=== PATIENT | female | born 1940 | race Caucasian/White ===

== ENCOUNTER 2018-04-02 07:15 | Inpatient (IN) ==
[~2018-04-02 07:15] MED LIST: LIDOCAINE W/ SODIUM BICARB 0.5 ML SYR SUBD ONE; Nasal Sanitizer POPSWAB ampule 3 AMP (Nozin) PREOP DOSE ENOS SCH; ceFAZolin Inj 2gm (Premix) 2 GM/50 ML BAG IV ONE
[2018-04-02] MEDS ORDERED: Ketorolac Inj 30 MG, Morphine Inj (Ortho Cocktail) 5 MG, BUPivacaine Inj 0.25% PF 150 MG SPLASH ONE ×3 (07:20)
[2018-04-02] MEDS ORDERED: Lactated Ringers 1,000 ML PRIMARY IV ONE ×3 (07:42→13:03)
[2018-04-02] MEDS ORDERED: ceFAZolin Inj 2gm (Premix) 2 GM/50 ML BAG IV ONE (07:42)
[2018-04-02] MEDS ORDERED: LIDOCAINE W/ SODIUM BICARB 0.5 ML SYR ONE (07:42)
[2018-04-02] MEDS ORDERED: LIDOCAINE HCL 2 % 10 ML JELLY URO-JECT TOPICAL PRN (07:47)
[2018-04-02] MEDS ORDERED: MIDAZOLAM HCL 2 MG/2 ML VIAL ONE ×2 (08:28→10:30)
[2018-04-02] MEDS: Lactated Ringers 1,000 ML PRIMARY IV SCH ×3 (08:30→16:39)
[2018-04-02] MEDS ORDERED: MIDAZOLAM HCL 2 MG/2 ML VIAL IVP ONE (08:45)
[2018-04-02 08:49] LABS: BILIRUBIN,URINE NEGATIVE (NEG); CLARITY,URINE SLIGHTLY CLOUDY (CLEAR); COLOR,URINE YELLOW (Y); GLUCOSE, URINE (UA) NEGATIVE (NEG); OCCULT BLOOD,URINE NEGATIVE (NEG); PROTEIN,URINE NEGATIVE (NEG); URINE SAMPLE TYPE CATH SPECIMEN; UROBILINOGEN,URINE 0.2 EU/dL (0.2)
[2018-04-02 08:52] LABS: RBC,URINE 0-1 /hpf; URINE CRYSTALS MODERATE; WBC,URINE 0
[2018-04-02] MEDS ORDERED: MORPHINE SULFATE/PF 10 MG/10 ML AMPULE ONE (10:30)
[2018-04-02] MEDS ORDERED: fentaNYL Inj 100 MCG/2 ML VIAL ONE (10:30)
[2018-04-02] MEDS ORDERED: BACITRACIN 50,000 UNIT VIAL IRRIG ONE (10:39)
[2018-04-02] MEDS ORDERED: BUPivacaine Liposome/PF (Exparel) Inj 20ml vial INFIL ONE (10:39)
[2018-04-02] MEDS ORDERED: Sodium Chloride 0.9% vial 40 ML ONE (10:39)
[2018-04-02] MEDS ORDERED: PROPOFOL 10 MG/1 ML (200 MG/20 ML) VIAL IV ONE (11:16)
[2018-04-02] MEDS ORDERED: TRANEXAMIC ACID 1,000 MG / 10 ML VIAL ONE ×2 (11:47→11:50)
[2018-04-02] MEDS ORDERED: ePHEDrine Inj 50 MG/ML AMP ONE (12:28)
--- NOTE | 2018-04-02 13:53 | ORTHO.OP ---
Surgery Date: 04/02/18 Preoperative Diagnosis: Right hip OA Postoperative Diagnosis: Same Procedure: Right MARINA Surgeon: Amish Edmonds MD Ob/Gyn Physician: Marcelina Blackwell PA-C Anesthesia Provider: Dylon Way CRNA Anesthesia Type: Regional (Spinal) Estimated Blood Loss (mL): 300 Fluids: 2000mL Pathology: None Complications: None
[2018-04-02 14:26] LABS: Hemoglobin [HGB] 12.3 g/dL (12.0-16.0)
--- NOTE | 2018-04-02 14:36 | DI ---
AP PELVIS AND RIGHT HIP, 04/02/2018 10:38 AM: Clinical History: Status post right total hip replacement. Osteoarthritis. Previous Exam: None at this facility. Comparison is made with an outside study from [place], [place], dated 03/18/2018. Views: AP pelvis with AP and lateral views of replaced hip. Patient is status post right total hip replacement. Prosthetic joint articulates normally. Reading: Right total hip replacement. Prosthetic joint articulates normally.
[2018-04-02] MEDS ORDERED: MAG HYDROX/AL HYDROX/SIMETH 30 ML SUSP PO PRN (14:38)
[2018-04-02] MEDS ORDERED: Prochlorperazine Tab 10 MG TAB PO PRN (14:38)
[2018-04-02] MEDS ORDERED: MORPHINE SULFATE 2 MG/1 ML IVP PRN (14:38)
[2018-04-02] MEDS ORDERED: HYDROcodone-APAP 7.5 MG-325 MG TABLET PO PRN (14:38)
[2018-04-02] MEDS ORDERED: ONDANSETRON 4 MG/2 ML VIAL IVP PRN (14:38)
[2018-04-02] MEDS ORDERED: diphenhydrAMINE 25 MG CAPSULE PO PRN (14:38)
[2018-04-02] MEDS ORDERED: BISACODYL 10 MG SUPPOSITORY RECTAL PRN (14:38)
[2018-04-02] MEDS ORDERED: ACETAMINOPHEN 325 MG TABLET PO PRN (14:38)
[2018-04-02] MEDS ORDERED: CALCIUM CARBONATE 500 MG (TUMS) CHEWABLE TABLET PO PRN (14:38)
[2018-04-02] MEDS ORDERED: BISACODYL 5 MG TABLET PO PRN (14:38)
[2018-04-02] MEDS ORDERED: Ondansetron ODT Tab 8 MG TAB PO PRN (14:38)
[2018-04-02] MEDS ORDERED: MORPHINE SULFATE 10 MG/1 ML IV PRN (15:45)
[2018-04-02] MEDS ORDERED: MORPHINE SULFATE 2 MG/1 ML IV PRN (15:45)
[2018-04-02] MEDS ORDERED: MORPHINE SULFATE 4 MG/1 ML IV PRN (15:45)
--- NOTE | 2018-04-02 17:09 | CONSULT ---
Consult Note - Consult Reason for Consult: PostOp Consulation : Ortho Requesting Physician: Dr. Edmonds Primary Care Provider: DEMETRI DARLING - History of Present Illness History of Present Illness: Is a very nice 78-year-old female admitted for elective right hip total replacement for end-stage osteoarthritis hospitalist service consulted for medical management. She is doing quite well postop but no chest pain nausea or vomiting Past Medical History Medical History: Hypertension, hypercholesterolemia, osteoporosis, thyroid disease, Surgical History: Bilateral cataract surgery, gallbladder surgery laparoscopic, partial hysterectomy noncancerous, left total hip replacement Tobacco Use: Never Smoker In the Past 12 Months, Have Used or Abuse Any of the Following Substance: None Review of Systems - Review of Systems All Systems: Reviewed & No Additional Complaints Except as Stated - Respiratory Respiratory: DENIES: Negative System Review, Cough, Sputum, Dyspnea At Rest, Dyspnea with Exertion, Pleuritic Pain, Hemoptysis, Wheezing, Other, See HPI - Cardiovascular Cardiovascular: DENIES: Negative System Review, Chest Pain, Edema, Syncope, Palpitations, Orthopnea, Paroxysmal Nocturnal Dyspnea, Other, See HPI - Gastrointestinal Gastrointestinal / Abdominal: DENIES: Negative System Review, Nausea, Vomiting, Diarrhea, Constipation, Abdominal Pain, Bloody Stool, Poor Appetite, Heartburn, Regurgitation, Bloating, Lactose Intolerance, Melena, Bright Red Blood per Rectum, Other, See HPI Medication / Allergies Home Medications: Home Medications Medication Instructions Recorded Confirmed Type Aspirin [Aspir 81] 81 mg PO DAILY 08/28/11 04/01/18 History Calcium Carbonate [Calcium] 500 mg PO DAILY 08/28/11 04/01/18 History Levothyroxine Sodium [Synthroid] 25 mcg PO DAILY 08/28/11 04/02/18 History Lovastatin 20 mg PO DAILY 08/28/11 04/01/18 History Multivitamins W-Minerals 1 each PO DAILY 08/28/11 04/01/18 History [Multivitamin] Omeprazole 20 mg PO DAILY 08/28/11 04/01/18 History Amlodipine Besylate/Benazepril 10 - 40 mg PO DAILY cap 06/01/14 04/01/18 History [LOTREL] Celecoxib [Celebrex] 200 mg PO DAILY cap 06/01/14 04/01/18 History Cetirizine HCl [Zyrtec] 10 mg PO DAILY tab 06/01/14 04/01/18 History Cyclobenzaprine HCl 10 mg PO BID tab 06/01/14 04/01/18 History Ibandronate Sodium [Boniva] 150 mg PO MONTHLY tab 06/01/14 04/01/18 History Estrogens, Conj Vaginal Cream 30 gm VAGINAL WEEKLY 06/09/14 04/01/18 History [Premarin Vaginal Cream] Hydrocodone/Acetaminophen [[place] 1 - 2 ea PO Q4-6H PRN #70 tab 04/02/18 Rx 7.5-325 Tablet] Allergies/Adverse Reactions: Allergies Allergy/AdvReac Type Severity Reaction Status Date / Time Sulfa (Sulfonamide Allergy Intermediate RASH Verified 04/02/18 14:47 Antibiotics) [Sulfa(Sulfonamide Antibiotics)] adhesive AdvReac RASH Verified 04/02/18 14:47 Exam - Vitals Vital Signs: Vital Signs Temperature 97 F Temperature Source Temporal Artery Scan Pulse Rate [Pulse Oximeter] 72 Pulse Rate 58 Respiratory Rate 16 Blood Pressure [Right Arm] 118/65 Blood Pressure 125/66 Pulse Ox 100 Oxygen Flow Rate 1 Oxygen Delivery Method Nasal Cannula Height 5 ft Weight 130 lb - General General Appearance: No Acute Distress, Cooperative - Respiratory Respiratory Exam: POSITIVE: Clear to Auscultation - Bilaterally, Breathing Non Labored, Normal To Percussion, Normal to Percussion and Palpation - Cardiovascular Cardiovascular Exam: POSITIVE: RRR, No Murmur, No Clicks, No Gallops, No Rubs, PMI Non-Displaced - GI/Abdominal GI/Abdominal Exam: POSITIVE: Normal Bowel Sounds, Non Tender, Non Distended, Soft, No Masses, No Hepatomegaly, No Splenomegaly, No Organomegaly Results - Labs CBC and BMP: 04/02/18 14:24 Assessment and Plan - Patient Problems (1) Status post total hip replacement, right Current Visit: Yes Status: Acute Comment: Deferred Dr. Edmonds for postop pain anticoagulation PT OT orders Code(s): Z96.641 - Presence of right artificial hip joint (2) Hypertension Current Visit: Yes Status: Acute Comment: Continue current medications Code(s): I10 - Essential (primary) hypertension (3) Hypercholesterolemia Current Visit: Yes Status: Acute Comment: Continue current meds Code(s): E78.00 - Pure hypercholesterolemia, unspecified (4) Hypothyroidism Current Visit: Yes Status: Acute Comment: Continue current meds Code(s): E03.9 - Hypothyroidism, unspecified
[2018-04-02] MEDS: PANTOPRAZOLE 40 MG TABLET PO SCH (17:32)
--- NOTE | 2018-04-02 17:50 | CRNA.PROCE ---
Central Neuraxis Block Placemt - - Safety Measures: Time Out Taken, Site Verified - - Type of Block: Subarachnoid Reason for Block: Surgical Moniters Used During Block: EKG, SPO2, NIBP Sedation Used - Enter Amount Used in Comment Field: Midazolam (mg): Yes (1), Fentanyl (mcg): Yes (50) Positioning: Sitting Skin Prep Used: ChloroPrep Draped: Yes Skin Infiltration - Enter Amount Used in Comment Field: 1% Xylocaine (mL): Yes Introducer User: 23 Gauge Spinal Needle Used: 25 Thuy 80 mm Local Anesthetic - Enter Amount Used in Comment Field: 0.75 % Bupivacaine with Dextrose (ml): Yes (2) Additive Used - Enter Amount Used in Comment Field: Preservative Free Morphine (mg): Yes (0.15) Bioclusive Dressing Applied: No Anesthesia Time - Other Weight: 58.967 kg Height: 5 ft Body Mass Index (BMI): 25.4
--- NOTE | 2018-04-02 17:51 | CRNA.PROGR ---
Anesthesia Time - Procedure/Recovery Time Start Date: 04/02/18 End Date: 04/02/18 Anesthesia : Time In: 11:01 Anesthesia : Time Out: 13:45 Anesthesia : Total Time: 164 - Block Time Start Date: 04/02/18 End Date: 04/02/18 PreOp Block : Time In: 10:35 PreOp Block : Time Out: 10:45 PreOp Block : Total Time: 10 - Total Anesthesia Time Total Anesthesia Time (minutes): 174 - Other Weight: 58.967 kg Height: 5 ft Body Mass Index (BMI): 25.4 Physical Status: P3 Anesthesia Type: Spinal Block
--- NOTE | 2018-04-02 17:51 | CRNA.PROGR ---
Anesthesia Recovery Phase I - Post Anesthesia Evaluation Patient's Condition on Arrival in Phase I: Stable Pain Level: 0
--- NOTE | 2018-04-02 19:44 | ORTHO.PROG ---
Last Taken Vital Signs: Vital Signs - Last Taken Temperature 97.4 F 04/02/18 17:00 Pulse Rate 89 04/02/18 17:00 Respiratory Rate 16 04/02/18 17:00 Blood Pressure 102/58 04/02/18 17:00 Pulse Ox 99 04/02/18 17:00 Subjective: Bianca was moved up to the floor this afternoon and denies any hip pain. She complains of some pain on the inside of her thigh that just started within the last hour or so. She was able to eat half of her dinner and has no other complaints. Objective: Pt is A&Ox3, and in no distress, sitting upright in her bed with abduction pillow on per protocol. She has no tenderness at her hip, but is mildly tender on palpation at the proximal-mid adductor muscle region. No erythema, induration, or skin wound is present. Dressing is intact. Skin is clean and dry. No calf tenderness, and sensation is intact to light touch. Assessment: POD 0 s/p R MARINA, doing well Plan: Bianca will be followed by the hospitalist, and will be seen by ORLANDO Riley, in the morning. MARINA protocol will be followed, and she will take pain medication as needed. Her hope is to get discharged home by tomorrow afternoon or evening, where her family will be there to take care of her. She can be discharged s/p routine consult with PT
[2018-04-02] MEDS: ceFAZolin Inj 2gm (Premix) 2 GM/50 ML BAG IV SCH (19:57)
[2018-04-02] MEDS ORDERED: BENAZEPRIL HCL 20 MG TABLET PO SCH ×2 (21:00)
[2018-04-02] MEDS: DOCUSATE 100 MG CAPSULE PO SCH (21:08)
[2018-04-02] MEDS: IBUPROFEN 400 MG TABLET PO PRN (23:03)
[2018-04-03] MEDS: Lactated Ringers 1,000 ML PRIMARY IV SCH (02:39)
[2018-04-03] MEDS: ceFAZolin Inj 2gm (Premix) 2 GM/50 ML BAG IV SCH (02:39)
[2018-04-03 05:21] VITALS: RESP 16
[2018-04-03 05:25] LABS: Hematocrit [HCT] 33.1 % (37.0-47.0); Hemoglobin [HGB] 10.6 g/dL (12.0-16.0); MEAN CORPUSCULAR HEMOGLOBIN 27.3 PG (27-31); MEAN CORPUSCULAR VOLUME 85.3 FL (81-99); MEAN PLATELET VOLUME 10.2 FL (7.4-12.2); RED BLOOD COUNT 3.88 10^6/uL (4.20-5.40)
[2018-04-03] MEDS ORDERED: LEVOTHYROXINE 25 MCG TABLET PO SCH (05:30)
[2018-04-03 05:33] LABS: BLOOD UREA NITROGEN 15 mg/dL (7-22); BUN/CREATININE RATIO 21.42 (6-20)
[2018-04-03] MEDS: PANTOPRAZOLE 40 MG TABLET PO SCH (06:48)
[2018-04-03 07:51] VITALS: BP 113/69; TEMP 97.7; O2SAT 98
[2018-04-03] MEDS: IBUPROFEN 400 MG TABLET PO PRN (08:13)
[2018-04-03] MEDS: DOCUSATE 100 MG CAPSULE PO SCH (08:13)
[2018-04-03] MEDS ORDERED: ENOXAPARIN SODIUM 30 MG/0.3 ML SYRINGE SUBCUT SCH (09:00)
[2018-04-03] MEDS ORDERED: POTASSIUM CHLORIDE 20 MEQ TAB PO SCH (09:00)
[2018-04-03] MEDS ORDERED: CELECOXIB 200 MG CAPSULE PO SCH (09:00)
--- NOTE | 2018-04-03 09:43 | DCSUMMARY ---
Hospitalization Summary Hospital Course: Final Discharge Diagnosis: Current Visit Problems Problem Status Onset Code Status post total hip replacement, right Acute Z96.641 Hypertension Acute I10 Hypercholesterolemia Acute E78.00 Hypothyroidism Acute E03.9 Diagnostic Data, Laboratory Data, and Procedures of Signifigance: History and Physical pertinent to Admission: Course of Hospitalization: Is a very nice 78-year-old female status post right hip replacement by Dr. Edmonds. See his operative note progress notes for details follow-up appointments and pain medication and anticoagulation instructions. Patient does have a when necessary Percocet and 81 mg of aspirin for 6 weeks ordered. She had hypokalemia which was replaced before she left other medical issues remained stable no change in home medications. She will follow up as instructed by Dr. Edmonds's team On the date of discharge, the patient was examined: Gen.: No acute distress, alert, nontoxic Heart: Regular rate and rhythm, no murmurs, clicks, gallops, or rubs Lungs: Clear to auscultation bilaterally, breathing is nonlabored Abdomen/GI: Normal tones on auscultation, soft, nontender, nondistended Musculoskeletal/extremities: No clubbing, cyanosis, or edema Vitals reviewed and are listed below Vital Signs (24 hrs) 04/02/18 13:45 04/02/18 13:50 04/02/18 13:55 Temperature 96.6 F L Pulse Rate 63 67 56 L Pulse Rate [Pulse Oximeter] Respiratory Rate 12 12 12 Blood Pressure 105/75 118/67 119/68 Blood Pressure [Right Arm] Pulse Ox 94 100 100 04/02/18 14:00 04/02/18 14:10 04/02/18 14:20 Temperature Pulse Rate 57 L 67 56 L Pulse Rate [Pulse Oximeter] Respiratory Rate 12 16 16 Blood Pressure 123/67 108/55 124/66 Blood Pressure [Right Arm] Pulse Ox 100 100 100 04/02/18 14:30 04/02/18 14:41 04/02/18 15:21 Temperature 97.5 F 96.8 F Pulse Rate 58 L Pulse Rate [Pulse Oximeter] 68 Respiratory Rate 16 16 12 Blood Pressure 125/66 Blood Pressure [Right Arm] 125/73 Pulse Ox 100 100 04/02/18 15:35 04/02/18 17:00 04/02/18 21:00 Temperature 97 F 97.4 F 98.1 F Pulse Rate Pulse Rate [Pulse Oximeter] 72 89 Respiratory Rate 16 16 20 Blood Pressure Blood Pressure [Right Arm] 118/65 102/58 114/67 Pulse Ox 100 99 95 04/03/18 00:20 04/03/18 05:00 04/03/18 07:50 Temperature 97.8 F 97.6 F 97.7 F Pulse Rate Pulse Rate [Pulse Oximeter] 85 83 Respiratory Rate 20 16 16 Blood Pressure Blood Pressure [Right Arm] 120/66 110/59 113/69 Pulse Ox 96 94 98 Assessment and Plan: 1. As per discharge assessments above 2. Disposition: Home 3. Condition on discharge, stable and improved. 4. Diet: regular diet 5. Activities: resume normal activities 6. Follow-Up: 1. PCP 2. 7. Medications at the Time of Discharge: Home Medications Medication Instructions Recorded Confirmed Type Aspirin [Aspir 81] 81 mg PO DAILY 08/28/11 04/01/18 History Calcium Carbonate [Calcium] 500 mg PO DAILY 08/28/11 04/01/18 History Levothyroxine Sodium [Synthroid] 25 mcg PO DAILY 08/28/11 04/02/18 History Lovastatin 20 mg PO DAILY 08/28/11 04/01/18 History Multivitamins W-Minerals 1 each PO DAILY 08/28/11 04/01/18 History [Multivitamin] Omeprazole 20 mg PO DAILY 08/28/11 04/01/18 History Amlodipine Besylate/Benazepril 10 - 40 mg PO DAILY cap 06/01/14 04/01/18 History [LOTREL] Celecoxib [Celebrex] 200 mg PO DAILY cap 06/01/14 04/01/18 History Cetirizine HCl [Zyrtec] 10 mg PO DAILY tab 06/01/14 04/01/18 History Cyclobenzaprine HCl 10 mg PO BID tab 06/01/14 04/01/18 History Ibandronate Sodium [Boniva] 150 mg PO MONTHLY tab 06/01/14 04/01/18 History Estrogens, Conj Vaginal Cream 30 gm VAGINAL WEEKLY 06/09/14 04/01/18 History [Premarin Vaginal Cream] Hydrocodone/Acetaminophen [[place] 1 - 2 ea PO Q4-6H PRN #70 tab 04/02/18 Rx 7.5-325 Tablet] 8. Time, care, counseling and coordination of care for this discharge is greater than 30 minutes. Exam - Vitals Vital Signs: Vital Signs Temperature 97.7 F Temperature Source Temporal Artery Scan Pulse Rate [Pulse Oximeter] 83 Pulse Rate 58 Respiratory Rate 16 Blood Pressure [Right Arm] 113/69 Blood Pressure 125/66 Pulse Ox 98 Oxygen Flow Rate 1 Oxygen Delivery Method Room Air Height 5 ft Weight 130 lb Patient Problems - Patient Problem List (1) Status post total hip replacement, right Current Visit: Yes Status: Acute Code(s): Z96.641 - Presence of right artificial hip joint Category: Surgical (2) Hypertension Current Visit: Yes Status: Acute Code(s): I10 - Essential (primary) hypertension Category: Medical (3) Hypercholesterolemia Current Visit: Yes Status: Acute Code(s): E78.00 - Pure hypercholesterolemia, unspecified Category: Medical (4) Hypothyroidism Current Visit: Yes Status: Acute Code(s): E03.9 - Hypothyroidism, unspecified Category: Medical
--- NOTE | 2018-04-03 12:15 | PT.PROG ---
Progress Note Progress Note: S. Patient stated that she has a lot of stairs at home. O. Patient ambulated 50 feet to the stair well then ascended and descended 12 stairs then ambulated 50 feet back to her room where she was left in bed with alarm and call light. A. Patient tolerated therapy well, she struggled with stair training however her family agreed to assist her. P. Patient has met all goals at this time.
--- NOTE | 2018-04-03 13:29 | ORTHO.PROG ---
Last Taken Vital Signs: Vital Signs - Last Taken Temperature 97.7 F 04/03/18 07:50 Pulse Rate 83 04/03/18 07:50 Respiratory Rate 16 04/03/18 07:50 Blood Pressure 113/69 04/03/18 07:50 Pulse Ox 98 04/03/18 07:50 Subjective: Patient reports some pain while ambulating, but states is it controlled on IBU only. She is not wanting to take any narcotic pain meds. Denies any CP, SOB, F/C, or calf pain. She would like to go home today. She states she has help at home. Objective: Laboratory Results 04/02/18 04/03/18 04/03/18 14:24 04:50 04:50 WBC 7.10 RBC 3.88 L Hgb 12.3 10.6 L Hct 38.0 33.1 L MCV 85.3 MCH 27.3 MCHC 32.0 L RDW Std Deviation 45.1 RDW Coeff of Jessika 14.8 H Plt Count 264 MPV 10.2 Sodium 136 Potassium 3.6 L Chloride 104 Carbon Dioxide 26 Anion Gap 6 BUN 15 Creatinine 0.7 BUN/Creatinine Ratio 21.42 H Glucose 97 Calculated Osmolality 282.0 Calcium 8.4 L Troponin I 04/03/18 04:50 WBC RBC Hgb Hct MCV MCH MCHC RDW Std Deviation RDW Coeff of Jessika Plt Count MPV Sodium Potassium Chloride Carbon Dioxide Anion Gap BUN Creatinine BUN/Creatinine Ratio Glucose Calculated Osmolality Calcium Troponin I < 0.012 On exam, the patient is A&O x 3 and is not in any acute distress. The dressing is clean/dry/intact. Negative calf tenderness. NV intact. Assessment: POD 1 from routine Right MARINA overall doing well. Plan: * DVT ppx: ASA 81mg 1 tablet daily x 6 weeks and discharge home with portable SCDs * Pain meds: discharge home with hydrocodone and OTC IBU 200mg 4 tablets every 8 hours prn pain * PT: start outpatient PT on Friday * WBAT with walker * posterior hip restrictions * wound care: may remove dressing on POD 3 and shower as normal; no soaking of the incision * discharge home once cleared by PT and hospitalist * follow-up with orthopedics in 2 weeks as scheduled
--- NOTE | 2018-04-03 14:49 | PTI REPORT ---
Thank you for the referral of Bianca Hebert. She was seen on 04/02/18 for an inpatient evaluation status post right total hip replacement with a posterior approach. SUBJECTIVE: The patient is an 78-year-old female who underwent a right total hip replacement with a posterior approach earlier today. The patient reports that she is not having any pain, numbness, or tingling into her right lower extremity at this time. The patient is very anxious to get up and moving as she states that she really wants to go home as soon as she is able to. The patient lives in [place], [place] with her . 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 The patient states that in her home she has three stairs up into the house, either going in the front which has a railing on the right or in the back which has a bilateral railing. Once in the home the patient does have a flight of stairs up to her room. The patient states that she has not had any falls over the last three months. The patient states that 17 years ago she did have a left total hip replacement and she is able to verbalize the precautions for a posterior hip replacement including no flexion past 90, no adduction, and no internal rotation. PAST MEDICAL HISTORY: Past medical history can be found in the patient's medical record. OBJECTIVE FINDINGS: General observations: The patient was alert and oriented to setting upon PT arrival. The patient was on one liter of oxygen. She did have an IV and a catheter in place and did have a pillow abduction brace in place. The patient's blood pressure in supine was 108/63. Her oxygen saturation was 100%. Her heart rate was 70 beats per minute. Prior to sitting up, the pillow abduction brace was removed along with the SCDs. Bed mobility: The patient was able to go from a supine to seated edge of bed position with contact guard assist x1 for safety. Once seated edge of bed the patient denied any lightheadedness or dizziness and demonstrated good seated edge of bed balance. The patient's blood pressure was 106/57. Oxygen saturation was 97%. Her heart rate was 76 beats per minute. The patient was able to go from a seated edge of bed to supine position with verbal cueing. Once in bed, the pillow abduction brace was placed back in place along with the SCDs. Transfers: A gait belt was placed around the patient and the patient was able to perform a sit to stand transfer with contact guard assist x1 for safety. Once in standing the patient denied any lightheadedness or dizziness. She did require hand hold assist x2 on the walker for her balance. Initially the patient was demonstrating toe touch weight-bearing on the right side, but once she stood for a minute, she did go to a flat foot weight-bearing and was able to put a little more weight through the right side and reported no pain. The patient's blood pressure was 104/56. Her oxygen saturation was 96%. Her heart rate was 83 beats per minute. After the patient did stand for a couple minutes, she stated that she would like to try a little bit of walking to see how it felt and to help with her back pain. Ambulation: The patient was able to ambulate x20 feet within the room and then transferred back to seated edge of bed. ASSESSMENT: The patient did demonstrate a little impulsivity with some of our transfers and standing and ambulating as she was trying to constantly see how well she would do without holding onto the walker and did require contact guard for safety and also verbal cueing for her safety awareness. The patient has good rehab potential. Problem List: Pain in the right hip Decreased range of motion of the right hip Weakness Posterior hip precautions Short-Term Goals: To be met by discharge from inpatient: Patient will be able to verbalize posterior hip precautions. Patient will be able to perform all transfers safely and independently within her precautions. Patient will be able to ambulate at least 150 feet with walker safely and independently. Patient will be able to ascend and descend at least one flight of stairs safely and independently with walker. Long-Term Goals: To be met following discharge from inpatient: Patient may be seen by outpatient physical therapy for post op care for her total hip replacement. TREATMENT PLAN: Patient will be seen B.I.D during the week and one time per day over the weekend as an inpatient to address the above goals and objectives. INITIAL TREATMENT: Treatment today consisted of the initial evaluation followed by one unit of functional activity. Following treatment the patient was left in bed with bed alarm set and call light within reach. MTDD
--- NOTE | 2018-04-06 11:54 | OTI REPORT ---
Thank you for the referral of Bianca Hebert. She was seen on 04/03/18 for an occupational therapy inpatient evaluation status post right total hip arthroplasty. SUBJECTIVE: The patient is an 78-year-old female who is being seen today secondary to having a total hip replacement. Prior to admission she reports that she was independent with ADLs. She reported that she wanted to go home. She does have all of the adaptive equipment including a net mobile developer, sock aide, bath sponge, shoe horn, high rise toilet seat, and a bath chair. PAST MEDICAL HISTORY: Past medical history can be found in the patient's medical record. OBJECTIVE FINDINGS: Bed mobility: The therapist observed the patient transferring from supine to sit with min assist. She states that she will have assistance at home for a while once she returns home. Ambulation: The patient was able to ambulate to the bathroom with contact guard assist. She did need some cues to slow down with the walker a little bit. She tends to get close to the walker which is a slight fall risk. Once cued, the patient practiced doing it correctly and did better. Activities of daily living: The patient was able to stand at the sink for a couple of minutes to complete hygiene activities. The patient was able to sit in chair and use demonstration equipment including net mobile developer and sock aide appropriately. ASSESSMENT: The patient did well with adaptive devices. She does have them at home, so none of them were issued to her. The patient was able to walk safer after cues were given. The patient does have some pain, but functionally, if she has assistance at home she will do well. Short-Term Goals: To be met by discharge from inpatient: Patient will be able to dress self with adaptive equipment. Long-Term Goals: To be met following discharge from inpatient: Patient will return home, demonstrating independence with all functional activities and ADLs. TREATMENT PLAN: Patient has met all goals. The patient will more than likely be discharged today. INITIAL TREATMENT: Treatment today consisted of the initial evaluation only. BRENDA
== END 2018-04-03 11:53 | disposition home or self-care (01) | DRG 470 ==
LOC: OPS 07:25 → EDSTATUS 09:30 → MED/SURG 14:30
PROVIDERS: ADMIT Orthopaedic Surgery; ATTEND Orthopaedic Surgery